=== PATIENT | male | born 1975 | race African-American/Black ===

== ENCOUNTER 2017-03-06 18:00 | Emergency (ER) | payer MEDICARE ==
[2016-03-02 12:26] VITALS: BMI 24.7
[~2017-03-06 18:00] MED LIST: CARAFATE1 G PO; CATAPRES0.1 MG PO; CATAPRES0.2 MG PO; CATAPRES0.3 MG PO; COREG 3.1253.125 MG PO; FLORAJEN3 CAPS460 MG PO; HYDRALAZINE HCL25 MG PO; HYDROCODONE-APA1 TAB PO; LISINOPRIL5 MG PO; NITRO-DUR0.3 MG TRANSDERM; NORMODYNE / TR200 MG PO; NORVASC10 MG PO; NORVASC5 MG PO; PHOSLO667 MG PO; PLAVIX75 MG PO; PRILOSEC20 MG PO; PROTONIX40 MG PO; REGLAN10 MG PO; SALINE NASAL SP45 ML NASAL; TRANDATE200 MG PO; ZOFRAN4 MG PO
== END 2017-03-06 20:18 | disposition home or self-care (01) ==
LOC: D.ER 18:00
DX: J01.90 Acute sinusitis, unspecified (principal); R50.9 Fever, unspecified; I12.9 Hypertensive chronic kidney disease with stage 1 through stage 4 chronic kidney disease, or unspecified chronic kidney disease; N18.9 Chronic kidney disease, unspecified

== ENCOUNTER → 2017-07-04 10:04 | Outpatient (CLI) | payer MEDICARE ==
[2016-03-02 12:26] VITALS: BMI 24.7
== END | disposition home or self-care (01) ==
LOC: D.MRI 10:00
DX: N28.89 Other specified disorders of kidney and ureter (principal)

== ENCOUNTER 2017-10-15 07:32 | Outpatient (CLI) | payer MEDICARE ==
[~2017-10-15] VITALS: Ht 170.2 cm; Wt 82.7 kg
--- NOTE | ~2017-10-15 | OP ---
PATIENT NAME: JAYY ALBRECHT MEDICAL RECORD: [id number] :73 LOCATION:D.CAT ADMISSION DATE: SURGEON: BARBER AGUIRRE MD DATE OF OPERATION: 10/15/2017 PROCEDURES: 1. PTCA and stent of RCA. 2. Left heart catheterization. 3. Selective coronary angiography. 4. Left ventriculogram. INDICATION: Chest pain compatible with angina, preoperative evaluation, kidney transplant, abnormal nuclear stress test. DESCRIPTION OF PROCEDURE: After informed consent was obtained and after a detailed explanation of risks, benefits as well as alternative therapies, the patient elected to proceed with angiogram and angioplasty. The right femoral area was prepped and draped in normal sterile fashion. Right femoral artery was cannulated via modified Seldinger technique with placement of 7-Upper Sorbian sheath. All catheters exchanged through this sheath. FINDINGS: The left ventriculogram was performed in a standard 30-degree MOORE view reveals preserved ejection fraction at 50% to 55%. SELECTIVE CORONARY ANGIOGRAPHY: 1. Left main is with no significant angiographic disease. 2. Left anterior descending has 70+ percent stenosis proximally. 3. Left circumflex has 90% stenosis in the mid vessel. 4. The right coronary has 70+ percent stenosis in the mid vessel. PTCA AND STENT OF THE RCA: The stent used was a 2.75 x 8-mm Integrity. Result was 0% residual stenosis. OVERALL IMPRESSION: Successful PTCA and stent of the RCA going from 70+ percent initial stenosis to 0% residual stenosis. PLAN: PTCA and stent of the left circumflex and LAD in the near future. TRANSINT:[id number] Voice Confirmation ID: [id number] DOCUMENT ID: [id number] BARBER AGUIRRE MD at 1208 CC: [id number] DICTATION DATE: 10/15/17 1002 INFORMATICS NURSE SPECIALIST: 10/15/17 1306 [facility] CLI 10/16/17 [place] [id number]
--- NOTE | ~2017-10-15 | DS ---
PATIENT:JAYY ALBRECHT :[birth year] MEDICAL RECORD: [id number] DISCHARGE SUMMARY ADMISSION DATE: 10/15/17 DISCHARGE DATE: 10/16/17 DATE OF SERVICE: 10/16/2017. DIAGNOSES: 1. Unstable angina. 2. Coronary artery disease. 3. Percutaneous transluminal coronary angioplasty stent right coronary artery and left circumflex this admission. 4. End-stage renal failure, on dialysis. 5. Hypertension. HOSPITAL COURSE: Mr. Albrecht presents with anginal symptomatology, found to have 3-vessel coronary artery disease, underwent successful PTCA stent of the RCA and left circumflex. He was discharged home with the addition of aspirin and Plavix to his medical regimen. He will follow up for PTCA stent of the LAD in the near future. TRANSINT:[id number] Voice Confirmation ID: [id number] DOCUMENT ID: [id number] BARBER AGUIRRE MD at 1208 CC: [id number] DICTATION DATE: 10/16/17925 SALES RECRUITER: 10/16/17 1144 [facility]P CLI 10/16/17 [facility] [address] [place] [address]
--- NOTE | ~2017-10-15 | OP ---
PATIENT NAME: JAYY ALBRECHT MEDICAL RECORD: [id number] :73 LOCATION:D.CAT ADMISSION DATE: SURGEON: BARBER AGUIRRE MD DATE OF OPERATION: 10/16/2017 PROCEDURES: 1. PTCA stent left circumflex. 2. Selective coronary angiography. PROCEDURE IN DETAIL: After informed consent was obtained and after a detailed description of risks, benefits as well as alternative therapies, the patient elected to proceed with angiogram and angioplasty. The left femoral area was prepped and draped in normal sterile fashion. Left femoral artery was cannulated via modified Seldinger technique with placement of 6-English sheath. All catheters exchanged through this sheath. FINDINGS: The left circumflex has a heavily calcified area of 95% stenosis in the mid vessel. This was addressed with a 3.0 cutting balloon, a 3.5 balloon, and the 3.5 x 30 mm Maximino stent. Result was 0% residual stenosis. OVERALL IMPRESSION: Successful percutaneous transluminal coronary angioplasty stent of the left circumflex going from 95% initial stenosis to 0% residual. TRANSINT:[id number] Voice Confirmation ID: [id number] DOCUMENT ID: [id number] BARBER AGUIRRE MD at 1208 CC: [id number] DICTATION DATE: 10/16/17924 CORK MOLDER: 10/16/17 1142 [facility] CLI 10/16/[address] [address]
--- NOTE | ~2017-10-15 | HEMODYNAMI ---
PATIENT:JAYY ALBRECHT MEDICAL RECORD: [id number] : 73 LOCATION:D.CAT ADMISSION DATE: 10/15/17 Generatedon:10/15/201710:05 Patient name: JAYY ALBRECHT Patient #: [id number] SSN: [id number] : 1975 Date of study: 10/15/2017 Page: Of Hemodynamic Procedure Report Patient Data Patient Demographics Procedure consent was obtained First Name: JAYY Gender: Male Last Name: TRENA : 1975 Middle Initial: M Age: 42 year(s) Patient #: [id number] Race: Black SSN: [id number] Additional ID: [id number] Contact details Address: [address] [place] [address] State: [place] City: [facility] Zip code: [address] Past Medical History Allergies Allergen Reaction Date Comments Reported Other allergy 03/03/2016 phenergan, Penicillin Admission Admission Data Admission Date: 10/15/2017 Admission Time: 7:32 Lab Results Lab Result Date: 10/15/2017 Lab Result Time: 0:00 Biochemistry Name Units Result Min Max Creatinine mg/dl 15.9 --(----)-* 0.6 1.3 Procedure Procedure Types Cath Procedure Diagnostic Procedure [facility] w/Coronaries PCI Procedure Coronary Stent Coronary Stent Initial Procedure Description Procedure Date Procedure Date: 10/15/2017 Procedure Start Time: 9:44 Procedure End Time: 10:02 Procedure Staff Name Function Poli De La Cruz MD Performing Physician Helder Min RT Monitor Patricia Chowdhury RN Nurse Jus Dumont RT Scrub Procedure Data Cath Procedure Fluoroscopy Diagnostic fluoroscopy Total fluoroscopy Time: 2.4 time: 2.4 min min Diagnostic fluoroscopy Total fluoroscopy dose: dose: 223.09 mGy 223.09 mGy Contrast Material Contrast Material Type Amount (ml) Isovue 300 120 Entry Location Entry Primary Successful Side Size Upsize Upsize Entry Closure Succes sful Closure Location (Fr) 1 (Fr) 2 (Fr) Remarks Device Remarks Femoral Right 5 Fr 7 Fr Exoseal artery Short Estimated blood loss: 20 ml Diagnostic catheters Device Type Used For End Catheter Placement MULTIPACK JL 4.0 5Fr Procedure catheter MULTIPACK 3DRC 5Fr Procedure catheter MULTIPACK Pigtail 5 Fr Procedure catheter Procedure Medications Medication Administration Route Dosage Oxygen etCO2 Nasal cannula 2 l/min Lidocaine 2% added to field 20 Heparin Flush Bag added to field 2 bags (1000units/500ml NS) 0.9% NaCl I.V. 100 ml/hr Versed I.V. 1 mg Fentanyl I.V. 50 mcg Heparin Bolus I.V. 4000 units Integrilin (Bolus I.V. 7.3 ml 2mg/ml) Versed I.V. 1 mg Fentanyl I.V. 50 mcg Versed I.V. 0.5 mg Fentanyl I.V. 25 mcg Plavix P.O. 600 mg Hemodynamics Rest Heart Rate: 60 (bpm) Pressure Samples Time Site Value (mmHg) Purpose Heart Use Rate(bpm) 9:49 LV 117/15,22 Snapshot 72 9:49 LV 129/15,18 Snapshot 65 Snapshots Pre Cath Intra NCS Post Cath Vital Signs Time Heart Resp SPO2 etCO2 NIBP (mmHg) Rhythm Pain Sedation Rate (ipm) (%) (mmHg) Status Level (bpm) 9:30:47 60 13 99 36.1 165/101(116) NSR 0 (11) 10(A) , No pain 9:35:05 57 15 100 39.1 157/97(113) NSR 0 (11) 10(A) , No pain 9:39:24 57 18 100 39.8 164/94(113) NSR 0 (11) 10(A) , No pain 9:43:35 60 15 94 15.8 130/93(122) NSR 0 (11) 10(A) , No pain 9:47:43 68 13 98 17.3 132/92(116) NSR 0 (11) 9(A) , No pain 9:51:59 69 13 100 36.1 148/87(103) NSR 0 (11) 9(A) , No pain 9:56:11 77 16 99 38.3 135/99(118) NSR 0 (11) 9(A) , No pain 10:00:27 70 15 100 36.8 150/91(128) NSR 0 (11) 10(A) , No pain Medications Time Medication Route Dose Verified Delivered Reason Notes Effectiveness by by 9:39:40 Oxygen etCO2 2 Poli Lambertie used for Nasal l/min Jono Chowdhury RN procedure cannula 9:39:48 Lidocaine 2% added 20ml Polijaziel Ashton for local to vial Joon De La Cruz MD anesthetic field 9:40:46 Heparin Flush added 2 Polijaziel Ashton used for Bag to bags Jono De La Cruz MD procedure (1000units/500ml field NS) 9:40:55 0.9% NaCl I.V. 100 Poli Buffie Per physician ml/hr Jono Chowdhury RN 9:42:13 Versed I.V. 1 mg Poli Gomez for sedation Jono Chowdhury RN 9:42:19 Fentanyl I.V. 50 Poli Buffie for sedation mcg Jono Chowdhury RN 9:45:21 Versed I.V. 1 mg Poli Gomez for sedation Jono Chowdhury RN 9:45:25 Fentanyl I.V. 50 Poli Gomez for sedation mcg Jono Chowdhury RN 9:50:35 Heparin Bolus I.V. 4000 Poli Gomez for verif ied units Jono Chowdhury RN anticoagulation with dr de la cruz 9:52:51 Integrilin I.V. 7.3 Poli Gomez for Waste d (Bolus 2mg/ml) ml Jono Chowdhury RN antiplatelet 2.7 ml therapy of vial 9:54:53 Versed I.V. 0.5 Poli Lambertie for sedation mg Jono Chowdhury RN 9:54:58 Fentanyl I.V. 25 Poli Gomez for sedation mcg Jono Chowdhury RN 10:00:11 Plavix P.O. 600 Poli Gomez for mg Jono Chowdhury RN antiplatelet therapy Procedure Log Time Note 9:11:33 Diagnostic Cath Status : Elective 9:12:17 Helder BARTON(R) (CV) sent for patient. Start room use. 9:19:34 H&P Date Dictated: 09/24/2017 Within 30 days and on chart., H&P Addendum completed by physician on day of procedure. (MUST COMPLETE FOR ALL OUTPATIENTS). 9:19:43 Time tracking: Regular hours (M-F 7:00 - 5:00) 9:19:49 Plan of Care:Hemodynamics will remain stable., Cardiac rhythm will remain stable., Comfort level will be maintained., Respiratory function will remain adequate., Patient/ family verbilizes understanding of procedure., Procedure tolerated without complication., Recovers from procedure without complications.. 9:22:06 Patient received from Pre/Post Procedure Room to CCL 3 Alert and oriented. Tansferred to table in Supine position. 9:22:12 Warm blankets applied, and robin hugger turned on for patient comfort. 9:24:25 Correct patient and procedure confirmed by team. 9:24:26 Signed procedure consent form obtained from patient. 9:24:27 ECG and BP/O2 sat monitors applied to patient. 9:29:35 Vital chart was started 9:30:41 Baseline sample Acquired. 9:30:47 Rhythm: sinus rhythm 9:30:50 Full Disclosure recording started 9:30:53 Pre-procedure instructions explained to patient. 9:30:53 Pre-op teaching completed and patient verbalized understanding. 9:30:56 Family in waiting room. 9:30:58 Patient NPO since Midnight. 9:31:55 ALLERGY TO PHENORGRAN 9:32:02 Is the patient allergic to Iodine/contrast media? No. 9:32:08 Is patient on blood thinner?No 9:32:10 Patient diabetic? No. 9:32:14 ----Pre-sedation anethsthesia assessment.---- 9:32:41 Previous problem with sedation/anesthesia? No ? 9:32:45 Snore? No 9:32:46 Sleep apnea? No 9:32:48 Deviated septum? No 9:32:49 Opens mouth fully? Yes 9:32:50 Sticks out tongue? Yes 9:32:53 Airway obstruction? No ? 9:32:56 Dentures? No ? 9:33:04 Pre procedure: right posterior tibial pulse 2+ Normal; easily identifiable; not easily obliterated 9:33:12 Patient pain scale 0/10 ?. 9:33:22 IV patent on arrival in right wrist with 0.9% NaCl at KVO. 9:33:55 Lab Result : Creatinine 15.9 mg/dl 9:34:01 Lab results completed and on chart. 9:34:06 Right groin area was prepped with chlora-prep and draped in sterile fashion 9:34:09 Alarms reviewed by R. N. 9:34:10 Sharps counted by scrub and verified by R.N. 9:39:12 Physician arrived 9:39:12 --------ALL STOP TIME OUT------ 9:39:13 Final Timeout: patient, procedure, and site verified with staff and physician. All members of the team are in agreement. 9:39:18 Right groin site verified by team. 9:39:22 Physical assessment completed. ASA score P 3 - A patient with severe systemic disease as per Poli De La Cruz MD. 9:39:27 Sedation plan: IV Moderate Sedation Medication:Versed, Fentanyl 9:39:40 Oxygen 2 l/min etCO2 Nasal cannula was administered by Patricia Chowdhury RN; used for procedure; 9:39:48 Lidocaine 2% 20ml vial added to field was administered by Poli De La Cruz MD; for local anesthetic; 9:40:46 Heparin Flush Bag (1000units/500ml NS) 2 bags added to field was administered by Poli De La Cruz MD; used for procedure; 9:40:55 0.9% NaCl 100 ml/hr I.V. was administered by Patricia Chowdhury RN; Per physician; 9:42:13 Versed 1 mg I.V. was administered by Patricia Chowdhury RN; for sedation; 9:42:19 Fentanyl 50 mcg I.V. was administered by Patricia Chowdhury RN; for sedation; 9:42:48 Use device set Femoral Dx 9:43:07 ACIST Syringe (06179) opened to sterile field. 9:43:07 Bag Decanter (2001S) opened to sterile field. 9:43:08 Medline Cath Pack ([id number]) opened to sterile field. 9:43:08 DIAGNOSTIC WIRE .035 260cm J wire (897553) opened to sterile field. 9:43:09 ACIST Hand Control (02349) opened to sterile field. 9:43:10 ACIST Manifold (29775) opened to sterile field. 9:43:12 Tegaderm 4 x 4 (1626W) opened to sterile field. 9:44:06 DIAGNOSTIC Multipack 5Fr catheter set (NQ0896) opened to sterile field. 9:44:07 SHEATH Prelude 5Fr 0.035 (KIO-7I-32-035) opened to sterile field. 9:44:12 Zero performed for pressure channel P1 9:44:26 Procedure started. 9:44:29 Local anesthetic to right femoral artery with Lidocaine 2% by Poli De La Cruz MD.INITIAL ACCESS ONLY 9:44:38 A 5 Fr sheath was inserted into the Right Femoral artery 9:45:21 Versed 1 mg I.V. was administered by Patricia Chowdhury RN; for sedation; 9:45:25 Fentanyl 50 mcg I.V. was administered by Patricia Chowdhury RN; for sedation; 9:46:10 A MULTIPACK JL 4.0 5Fr catheter was advanced over the wire and used for Procedure. 9:46:13 LCA angiography performed. 9:47:21 INFLATOR Merit BasixCompak (UX7546) opened to sterile field. 9:47:34 Catheter removed. 9:47:45 A MULTIPACK 3DRC 5Fr catheter was advanced over the wire and used for Procedure. 9:47:49 RCA angiography performed. 9:48:00 Catheter removed. 9:48:13 SHEATH 7FR [place] (APU890) opened to sterile field. 9:48:59 A MULTIPACK Pigtail 5 Fr catheter was advanced over the wire and used for Procedure. 9:50:11 GUIDE 7FR AR 2.0 SH catheter ([id number]) opened to sterile field. 9:50:21 LV hemodynamics recorded. 9:50:25 LV gram done using MOORE 9:50:31 EF : 55 % 9:50:33 Catheter removed. 9:50:35 Heparin Bolus 4000 units I.V. was administered by Patricia Chowduhry RN; for anticoagulation; verified with dr de la cruz 9:50:35 Proceeding to intervention. 9:50:57 Sheath upsized to a 7 Fr Short. 9:51:28 7 Fr AR 2 SH guide catheter was inserted over the wire 9:52:51 Integrilin (Bolus 2mg/ml) 7.3 ml I.V. was administered by Patricia Chowdhury RN; for antiplatelet therapy; Wasted 2.7 ml of vial 9:52:58 CHOICE PT Extra Support J 300cm guide wire ([id number]) opened to sterile field. 9:53:39 Wire advanced across lesion. 9:54:35 Place stent Inflation Number: 1 A INTEGRITY OTW 2.75 X 8 stent ([id number]) was prepped and advanced across the Mid RCA. The stent was deployed at 17 SOURAV for 0:10 (min:sec). 9:54:53 Versed 0.5 mg I.V. was administered by Patricia Chowdhury RN; for sedation; ::58 Fentanyl 25 mcg I.V. was administered by Patricia Chowdhury RN; for sedation; 9:55:10 EXOSEAL 7Fr (EX700) opened to sterile field. 9:55:33 Stent catheter was removed intact over wire. ::57 Wire removed. 9::59 Guide catheter removed. 9:57:56 Sheath removed intact; hemostasis achieved with Exoseal to the Right Femoral artery. 9:58:45 Procedure ended.(Physican Out) 9:59:10 Fluoroscopy time 02.40 minutes. 9:59:18 Fluoroscopy dose: 223.09 mGy 9:59:18 Flurop Dose total: 223.09 9:59:25 Contrast amount:Isovue 300 120ml. 9:59:51 Procedure type changed to Cath procedure, Diagnostic procedure, LHC, LHC w/Coronaries, PCI procedure, Coronary Stent, Coronary Stent Initial 10:00:04 Insertion/operative site no bleeding no hematoma. 10:00:11 Plavix 600 mg P.O. was administered by Patricia Chowdhury RN; for antiplatelet therapy; 10:00:25 Post-op/insertion site Right Femoral artery dressed using a 4 x 4 and Tegaderm. 10:01:33 Post right femoral artery:stable 10:01:36 Post Procedure Pulses reassessed and unchanged 10:01:41 Post-procedure physical assessment completed. ASA score P 3 - A patient with severe systemic disease as per Poli De L aCruz MD. 10:02:06 Post procedure rhythm: sinus rhythm 10:02:09 Estimated blood loss: 20 ml 10:02:11 Post procedure instruction explained to patient.Patient verbalizes understanding. 10:02:12 Patient needs reinforcement of post procedure teaching. 10:02:13 Procedure and supply charges have been captured, reviewed, submitted and are correct. 10:02:41 Vital chart was stopped 10::41 See physician's report for complete and final results. 10:02:44 Report given to Pre/Post Procedure Room. 10:02:54 Patient transfered to Pre/Post Procedure Room with Stretcher. 10::57 Procedure ended. 10:02:57 Full Disclosure recording stopped 10:03:03 End room use (Document Last) Intervention Summary Intervention Notes Time ActionType Lesion and Equipment Action# Pressure Duration Attributes Used 9:54:35 Place stent Mid RCA INTEGRITY 1 17 00:10 OTW 2.75 X 8 stent ([id number]) Device Usage Item Name Manufacture Quantity Catalog Number Hospital Part Current M inimal Lot# / Charge Number Stock Stock Serial# Code ACIST Syringe Acist 1 56153 622738 579520 444254 2 0 (40472) [employer] Bag Decanter Microtek 1 2001S 541921 15357 587119 5 (2001S) Medical Inc. Medline Cath Cardinal 1 [id number] 409832 83789 047924 5 [facility] ([id number]) DIAGNOSTIC WIRE [facility] [place] 1 192390 299379 572161 554586 3 0 .035 260cm J wire (537757) ACIST Hand Acist 1 95874 879142 014760 739058 5 Control (27715) Medical [employer] Inc ACIST Manifold Acist 1 76592 118791 082772 678424 5 (67236) [employer] Systems Inc Tegaderm 4 x 4 3M 1 1626W 188664 654330 308555 5 (1626W) DIAGNOSTIC Cardinal 1 UH6271 465574 71696 565091 3 0 Multipack 5Fr Health catheter set ([id number]) SHEATH Prelude Merit 1 KWW-2J-16-035 310616 468667 193748 5 5Fr 0.035 Medical (QEX-9V-56-035) MULTIPACK JL Cardinal 1 560555 5 4.0 5Fr Health catheter INFLATOR Merit Merit 1 RO8376 958042 380110 968770 1 5 BasKogent Surgical Medical ([id number]) MULTIPACK 3DRC Cardinal 1 133354 5 5Fr catheter Health SHEATH 7FR Terumo 1 PAC442 081044 414958 481506 5 [place] ([id number]) MULTIPACK Cardinal 1 426375 5 Pigtail 5 Fr Health catheter GUIDE 7FR AR Medtronic 1 [id number] 439505 871284 646170 0 2.0 SH catheter ([id number]) CHOICE PT Extra [place] 1 [id number] 529931 5 Support J 300cm Scientific guide wire ([id number]) INTEGRITY OTW Medtronic 1 [id number] 650304 202156 8 [id number] 2.75 X 8 stent ([id number]) EXOSEAL 7Fr Cardinal 1 EX700 718749 998497 184204 5 (EX700) Health Signature Audit [place] Stage Time Signature Unsigned Intra-Procedure 10/15/2017 Helder Min 10:04:59 AM RT(R) (CV) Signatures Monitor : Helder Min RT Signature : Date : Time : [place] [address] [place] [address]
--- NOTE | ~2017-10-15 | HEMODYNAMI ---
PATIENT:JAYY ALBRECHT MEDICAL RECORD: [id number] : 73 [id number] ADMISSION DATE: 10/15/17 Generatedon:10/16/20179:30 Patient name: JAYY ALBRECHT Patient #: [id number] SSN: [id number] : 1975 Date of study: 10/16/2017 Page: Of Hemodynamic Procedure Report Patient Data Patient Demographics Procedure consent was obtained First Name: JAYY Gender: Male Last Name: TRENA : 1975 Middle Initial: M Age: 42 year(s) Patient #: [id number] Race: Black SSN: [id number] Additional ID: [id number] Contact details Address: [address] [place] [address] State: [place] City: [facility] [place] Zip code: [address] Past Medical History Allergies Allergen Reaction Date Comments Reported Other allergy 03/03/2016 phenergan, Penicillin Admission Admission Data Admission Date: 10/15/2017 Admission Time: 7:32 Admit Source: Other Room #: D.2115 Lab Results Lab Result Date: 10/15/2017 Lab Result Time: 0:00 Biochemistry Name Units Result Min Max Creatinine mg/dl 15.9 --(----)-* 0.6 1.3 Procedure Procedure Types Cath Procedure Diagnostic Procedure Sedation Charges Moderate Sedation up to 15 minutes PCI Procedure Coronary Stent Coronary Stent Initial Procedure Description Procedure Date Procedure Date: 10/16/2017 Procedure Start Time: 9:10 Procedure End Time: 9:27 Procedure Staff Name Function Poli De La Cruz MD Performing Physician Chato Braswell RT Monitor Kareem Orr RN Nurse Procedure Data Cath Procedure Fluoroscopy Diagnostic fluoroscopy Total fluoroscopy Time: 4.7 time: 4.7 min min Diagnostic fluoroscopy Total fluoroscopy dose: 342 dose: 342 mGy mGy Contrast Material Contrast Material Type Amount (ml) Isovue 300 66 Entry Location Entry Primary Successful Side Size Upsize Upsize Entry Closure Succes sful Closure Location (Fr) 1 (Fr) 2 (Fr) Remarks Device Remarks Femoral Left 6 Fr Exoseal artery Short Estimated blood loss: 10 ml Procedure Complications No complications Procedure Medications Medication Administration Route Dosage 0.9% NaCl I.V. 30 ml/hr Oxygen etCO2 Nasal cannula 2 l/min Heparin Flush Bag added to field 2 bags (1000units/500ml NS) Lidocaine 2% added to field 20 Versed I.V. 2 mg Fentanyl I.V. 100 mcg Versed I.V. 2 mg Fentanyl I.V. 50 mcg Heparin Bolus I.V. 4000 units Fentanyl I.V. 50 mcg Hemodynamics Rest Heart Rate: 70 (bpm) Snapshots Pre Cath Intra NCS Post Cath Vital Signs Time Heart Resp SPO2 etCO2 NIBP (mmHg) Rhythm Pain Sedation Rate (ipm) (%) (mmHg) Status Level (bpm) 8:54:48 66 17 99 0 176/102(142) NSR 0 (11) 10(A) , No pain 8:59:39 71 15 100 33 180/106(133) NSR 0 (11) 10(A) , No pain 9:04:26 72 18 100 34.5 170/104(143) NSR 0 (11) 10(A) , No pain 9:09:07 71 15 98 41.3 146/94(120) NSR 0 (11) 10(A) , No pain 9:13:45 77 15 89 12 130/94(121) NSR 0 (11) 10(A) , No pain 9:18:20 74 16 95 39.8 123/91(108) NSR 0 (11) 9(A) , No pain 9:22:56 77 13 100 26.2 137/91(103) NSR 0 (11) 9(A) , No pain Medications Time Medication Route Dose Verified Delivered Reason Notes Effectiveness by by 8:59:30 0.9% NaCl I.V. 30 Kareem Kareem Per physician ml/hr Kirby Orr RN RN 8:59:40 Oxygen etCO2 2 Kareem Kareem Per physician Nasal l/min Kirby Orr cannula RN RN 8:59:50 Heparin Flush added 2 Kareem Kareem used for Bag to bags Kirby Orr procedure (1000units/500ml field RN RN NS) 9:00:05 Lidocaine 2% added 20ml Kareem Kareem for local to vial Kirby Orr anesthetic field RN RN 9:05:33 Versed I.V. 2 mg Kareem Kareem for sedation Kirby Orr RN RN 9:05:41 Fentanyl I.V. 100 Kareem Kareem for sedation mcg Kirby Orr RN RN 9:10:06 Versed I.V. 2 mg Kareem Kareem for sedation Kirby Orr RN RN 9:10:15 Fentanyl I.V. 50 Kareem Kareem for sedation mcg Kirby Orr RN RN 9:12:27 Heparin Bolus I.V. 4000 Kareem Kareem for units Kirby Orr anticoagulation RN RN 9:19:27 Fentanyl I.V. 50 Kareem Kareem for sedation mcg Kirby Orr RN internal communications manager Log Time Note 8:38:25 Informed consent obtained and on chart 8:38:27 Admit Source: Other 8:40:55 MARICRUZ ONONAN RT(R) Scrub 8:40:58 Diagnostic Cath status Elective 8:41:00 Kareem Orr RN sent for patient. Start room use. 8:41:00 Time tracking: Regular hours (M-F 7:00 - 5:00) 8:42:18 Plan of Care:Hemodynamics will remain stable., Cardiac rhythm will remain stable., Comfort level will be maintained., Respiratory function will remain adequate., Patient/ family verbilizes understanding of procedure., Procedure tolerated without complication., Recovers from procedure without complications.. 8:48:26 Patient received from Med II to CCL 1 Alert and oriented. Tansferred to table in Supine position. 8:48:31 Warm blankets applied, and robin hugger turned on for patient comfort. 8:48:31 Correct patient and procedure confirmed by team. 8:48:32 ECG and BP/O2 sat monitors applied to patient. 8:48:44 H&P Date Dictated: 10/15/2017 Within 30 days and on chart.. 8:48:48 Pre-procedure instructions explained to patient. 8:48:48 Pre-op teaching completed and patient verbalized understanding. 8:48:50 Family unavailable. 8:48:51 Patient NPO since Midnight. 8:53:48 Vital chart was started 8:53:49 Baseline sample Acquired. 8:53:53 Rhythm: sinus rhythm 8:53:54 Full Disclosure recording started 8:53:57 Is the patient allergic to Iodine/contrast media? No. 8:53:59 Is patient on blood thinner?Yes 8:54:05 ACC The patient was administered the following blood thiners within the last 24 hours: ACCPlavix 8:54:24 Patient diabetic? No. 8:54:30 If diabetic: On Metformin? No 8:54:34 Previous problem with sedation/anesthesia? No ? 8:54:38 Snore? No 8:54:39 Sleep apnea? No 8:54:40 Deviated septum? No 8:54:41 Opens mouth fully? Yes 8:54:42 Sticks out tongue? Yes 8:54:44 Airway obstruction? No ? 8:54:47 Dentures? No ? 8:55:09 Pre procedure: right dorsailis pedis pulse 1+ Palpable, but thready & weak; easily obliterated 8:55:13 Patient pain scale 0/10 ?. 8:55:31 IV patent on arrival in right wrist with 0.9% NaCl at [facility]. 8:55:34 Lab results completed and on chart. 8:55:38 Right groin area was prepped with chlora-prep and draped in sterile fashion 8:55:39 Alarms reviewed by R. N. 8:55:40 Sharps counted by scrub and verified by R.N. 8:59:30 0.9% NaCl 30 ml/hr I.V. was administered by Kareem Orr RN; Per physician; 8:59:40 Oxygen 2 l/min etCO2 Nasal cannula was administered by Kareem Orr RN; Per physician; 8:59:50 Heparin Flush Bag (1000units/500ml NS) 2 bags added to field was administered by Kareem Orr RN; used for procedure; 9:00:05 Lidocaine 2% 20ml vial added to field was administered by Kareem Orr RN; for local anesthetic; 9:03:36 Physician arrived 9:03:36 --------ALL STOP TIME OUT------ 9:03:37 Final Timeout: patient, procedure, and site verified with staff and physician. All members of the team are in agreement. 9:03:39 Left groin site verified by team. 9:03:44 Physical assessment completed. ASA score P 2 - A patient with mild systemic disease as per Poli De La Cruz MD. 9:03:47 Sedation plan: IV Moderate Sedation Medication:Versed, Fentanyl 9:05:33 Versed 2 mg I.V. was administered by Kareem Orr RN; for sedation; 9:05:41 Fentanyl 100 mcg I.V. was administered by Kareem Orr RN; for sedation; 9:09:40 ACIST Syringe (58807) opened to sterile field. 9:09:41 DIAGNOSTIC WIRE .035 260cm J wire ([id number]) opened to sterile field. 9:09:42 Bag Decanter (2002S) opened to sterile field. 9:09:43 ACIST Hand Control (56105) opened to sterile field. 9:09:44 ACIST Manifold (43918) opened to sterile field. 9:09:44 Tegaderm 4 x 4 (1626W) opened to sterile field. 9:10:06 Versed 2 mg I.V. was administered by Kareem Orr RN; for sedation; 9:10:06 CHOICE PT Extra Support 182cm wire ([id number]) opened to sterile field. 9:10:06 INFLATOR Merit BasixCompak (JI2400) opened to sterile field. 9:10:07 SHEATH 6Fr Prelude ([id number]) opened to sterile field. 9:10:10 Procedure started. 9:10:15 Fentanyl 50 mcg I.V. was administered by Kareem Orr RN; for sedation; 9:10:16 Local anesthetic to left femerol artery with Lidocaine 2% by Poli De La Cruz MD.INITIAL ACCESS ONLY 9:10:23 A 6 Fr Short sheath was inserted into the Left Femoral artery 9:10:25 Zero performed for pressure channel P1 9:10:28 Zero performed for pressure channel P1 9:10:30 Zero performed for pressure channel P1 9:10:32 Zero performed for pressure channel P1 9:10:34 Zero performed for pressure channel P1 9:10:39 Zero performed for pressure channel P1 9:10:42 Zero performed for pressure channel P1 9:11:51 6 Fr xbc 4 guide catheter was inserted over the wire 9:12:22 choice pt es wire advanced. 9:12:27 Heparin Bolus 4000 units I.V. was administered by Kareem Orr RN; for anticoagulation; 9:12:44 Wire advanced across lesion. 9:13:13 Inflate balloon Inflation number: 1 A EUPHORA 3.0 x 20 Balloon ([id number]) was prepped and advanced across the 1st Ob Tammie, then inflated to 17 SOURAV for 0:10 (min:sec). 9:13:31 Inflation number: 2 The EUPHORA 3.0 x 20 Balloon ([id number]) was reinflated across the 1st Ob Tammie, to 17 SOURAV for 0:10 (min:sec). 9:13:49 Inflation number: 3 The EUPHORA 3.0 x 20 Balloon ([id number]) was reinflated across the 1st Ob Tammie, to 19 SOURAV for 0:10 (min:sec). 9:14:35 Balloon removed over the wire. 9:15:52 Inflate balloon Inflation number: 4 A WOLVERINE Rx 3.0 x 10 cutting balloon ([id number]) was prepped and advanced across the 1st Ob Tammie, then inflated to 9 SOURAV for 0:10 (min:sec). 9:16:44 Inflation number: 5 The WOLVERINE Rx 3.0 x 10 cutting balloon ([id number]) was reinflated across the 1st Ob Tammie, to 11 SOURAV for 0:10 (min:sec). 9:17:15 Balloon removed over the wire. 9:19:27 Fentanyl 50 mcg I.V. was administered by Kareem Orr RN; for sedation; 9:19:48 Place stent Inflation Number: 6 A GABRIELA RX 3.5 x 30 stent ([id number]) was prepped and advanced across the 1st Ob Tammie. The stent was deployed at 17 SOURAV for 0:10 (min:sec). 9:20:39 Inflation number: 7 The stent balloon was then re-inflated across the 1st Ob Tammie to 9 SOURAV for 0:10 (min:sec). 9:21:03 Stent catheter was removed intact over wire. 9:21:05 Wire removed. 9:21:06 Guide catheter removed. 9:21:12 EXOSEAL 6Fr (EX600) opened to sterile field. 9:21:31 Sheath removed intact; hemostasis achieved with Exoseal to the Left Femoral artery. 9:21:33 Procedure ended.(Physican Out) 9:24:59 Fluoroscopy time 04.70 minutes. 9:25:02 Flurop Dose total: 342 9:25:02 Fluoroscopy dose: 342 mGy 9:25:23 Contrast amount:Isovue 300 66ml. 9:25:25 Sharps counted by scrub and verified by R.N. 9:25:27 Insertion/operative site no bleeding no hematoma. 9:25:30 Post-op/insertion site Left Femoral artery dressed using a 4 x 4 and Tegaderm. 9:25:35 Post left femerol artery:stable, soft, clean and dry 9:25:49 Post Procedure Pulses reassessed and unchanged 9:25:52 Post-procedure physical assessment completed. ASA score P 2 - A patient with mild systemic disease as per Poli De La Cruz MD. 9:25:56 Post procedure rhythm: unchanged. 9:26:00 Estimated blood loss: 10 ml 9:26:01 Post procedure instruction explained to patient.Patient verbalizes understanding. 9:26:01 Patient needs reinforcement of post procedure teaching. 9:26:13 Procedure type changed to Cath procedure, Diagnostic procedure, Sedation Charges, Moderate Sedation up to 15 minutes, PCI procedure, Coronary Stent, Coronary Stent Initial 9:26:51 Procedure and supply charges have been captured, reviewed, submitted and are correct. 9:26:54 Procedure Complication : No complications 9:26:56 Vital chart was stopped 9:26:56 See physician's report for complete and final results. 9:26:58 Report given to PCU. 9:27:00 Patient transfered to PCU with Stretcher. 9:27:02 Procedure ended. 9:27:02 Full Disclosure recording stopped 9:28:13 End room use (Document Last) Intervention Summary Intervention Notes Time ActionType Lesion and Equipment Used Action# Pressure Duration Attributes 9:13:13 Inflate 1st Ob Tammie EUPHORA 3.0 x 1 17 00:10 balloon 20 Balloon ([id number]) 9:13:31 Reinflate 1st Ob Tammie EUPHORA 3.0 x 2 17 00:10 balloon 20 Balloon ([id number]) 9:13:49 Reinflate 1st Ob Tammie EUPHORA 3.0 x 3 19 00:10 balloon 20 Balloon ([id number]) 9:15:52 Inflate 1st Ob Tammie WOLVERINE Rx 4 9 00:10 balloon 3.0 x 10 cutting balloon ([id number]) 9:16:44 Reinflate 1st Ob Tammie WOLVERINE Rx 5 11 00:10 balloon 3.0 x 10 cutting balloon ([id number]) 9:19:48 Place stent 1st Ob Tammie GABRIELA RX 3.5 x 6 17 00:10 30 stent ([id number]) 9:20:39 Reinflate 1st Ob Tammie GABRIELA RX 3.5 x 7 9 00:10 stent 30 stent balloon ([id number]) Device Usage Item Name Manufacture Quantity Catalog Number Hospital Part Current Minimal Lot# / Charge Number Stock Stock Serial# Code ACIST Syringe Acist 1 08795 319114 921296 [id number] 20 (89445) [employer] DIAGNOSTIC [place] 1 142309 980825 431278 930328 30 WIRE .035 260cm J wire (286696) Bag Decanter Microtek 1 2001S 024982 38335 312415 5 (2001S) Medical Inc. ACIST Hand Acist 1 90482 944593 406464 313639 5 Control Medical (22099) Systems Inc ACIST Manifold Acist 1 59355 610165 953254 022486 5 (71899) Medical Systems Inc Tegaderm 4 x 4 3M 1 1626W 886263 763818 610769 5 (1626W) CHOICE PT [place] 1 [id number] 886586 346923 325741 5 Extra Support Scientific 182cm wire ([id number]) INFLATOR Merit Merit 1 YU0525 994112 919371 190562 15 [facility] (W[place]3092) SHEATH 6Fr Merit 1 [id number] 031141 327454 487382 5 Prelude Medical ([id number]) EUPHORA 3.0 x Medtronic 1 [id number] 766797 578326 143016 5 [id number] 20 Balloon ([id number]) WOLVERINE Rx [place] 1 [id number] 153183 9752128 188057 5 3.0 x 10 Scientific cutting balloon ([id number]) GABRIELA RX 3.5 x Medtronic 1 [id number] 395650 8201881 368102 5 [id number] 30 stent ([id number]) EXOSEAL 6Fr Cardinal 1 EX600 175694 650248 120669 10 (EX600) Health Signature Audit [place] Stage Time Signature Unsigned Intra-Procedure 10/16/2017 Chato Braswell 9:30:32 AM RT(R) Signatures Monitor : Chato Braswell RT Signature : Date : Time : [place] [id number] [facility] [place] [address]
[2017-10-15 08:34] VITALS: BP 124/86
[2017-10-15 08:45] LABS: BASOPHILS 0.2 % (0-2); EOSINOPHILS 3.8 % (0-7); HEMATOCRIT 32.1 % (42.0-54.0); HEMOGLOBIN 10.6 g/dL (13.5-17.5); IMMATURE GRANULOCYTES 0.2 % (0-5); LYMPHOCYTES 12.7 % (15-50); MCV 87.7 fL (80.0-100.0); MEAN PLATELET VOLUME 9.9 fL (7.4-10.4); MONOCYTES 11.6 % (2-11); NEUTROPHILS 71.5 % (40-80); RBC 3.66 10x6/uL (4.20-6.10); RDW 14.5 % (11.5-14.5); WBC 5.5 10x3/uL (4.8-10.8)
[2017-10-15 08:46] LABS: PLATELET COUNT 155 10x3/uL (130-400)
[2017-10-15 08:52] LABS: ANION GAP 18.6 mmol/L (8-16); CARBON DIOXIDE 26.4 mmol/L (21.0-32.0); CREATININE - SERUM 15.9 mg/dL (0.6-1.3)
[2017-10-15 18:04] VITALS: BP 136/88; Ht 170.2 cm; Wt 82.7 kg
[2017-10-15 18:50] VITALS: BP 129/80
[2017-10-15 20:31] VITALS: BP 113/69
[2017-10-16 01:15] VITALS: BP 123/86
[2017-10-16 05:40] VITALS: BP 133/87
[2017-10-16 08:52] VITALS: BP 141/84
[2017-10-16 11:37] VITALS: BP 161/97
[2017-10-16] MEDS ORDERED: PLAVIX75 MG PO (15:18)
[2017-10-16] MEDS ORDERED: ASPIRIN81 MG PO (15:18)
[2017-10-17 10:49] LABS: BASOPHILS 0.4 % (0-2); EOSINOPHILS 5.3 % (0-7); HEMATOCRIT 51.8 % (42.0-54.0); HEMOGLOBIN 18.1 g/dL (13.5-17.5); IMMATURE GRANULOCYTES 0.1 % (0-5); LYMPHOCYTES 29.9 % (15-50); MCH 33.9 pg (26.0-34.0); MCHC 34.9 g/dL (31.0-37.0); MEAN PLATELET VOLUME 12.9 fL (7.4-10.4); MONOCYTES 11.2 % (2-11); NEUTROPHILS 53.1 % (40-80); RBC 5.34 10x6/uL (4.20-6.10); RDW 13.4 % (11.5-14.5); WBC 7.1 10x3/uL (4.8-10.8)
[2017-10-17 10:51] LABS: PLATELET COUNT 117 10x3/uL (130-400)
[2017-10-17 11:05] LABS: ANION GAP 10.8 mmol/L (8-16); CARBON DIOXIDE 31.7 mmol/L (21.0-32.0); CREATININE - SERUM 1.5 mg/dL (0.6-1.3); PHOSPHOROUS 4.1 mg/dL (2.5-4.9); POTASSIUM - SERUM 4.5 mmol/L (3.5-5.1)
== END 2017-10-16 18:42 | disposition home or self-care (01) ==
LOC: D.CATH 07:32 → D.M2 07:32 → D.CATH 09:30 → D.M2 16:03 → D.CATH 10-16 18:42
PROVIDERS: Internal Medicine Interventional Cardiology; Internal Medicine Nephrology
DX: I25.110 Atherosclerotic heart disease of native coronary artery with unstable angina pectoris (principal); N18.6 End stage renal disease
CPT/HCPCS: 92928; 93458; C9600

== ENCOUNTER 2017-10-22 07:32 | Outpatient (CLI) | payer MEDICARE ==
[~2017-10-22] VITALS: Ht 170.2 cm; Wt 83.2 kg
--- NOTE | ~2017-10-22 | HP ---
PATIENT: JAYY ALBRECHT MEDICAL RECORD: [id number] ACCOUNT: [id number] LOCATION:[facility] : 73 ADMISSION DATE: 10/22/17 HISTORY AND PHYSICAL EXAMINATION DIAGNOSES: 1. Angina. 2. Coronary artery disease. 3. Percutaneous transluminal coronary angioplasty stent of right coronary artery and left circumflex recently with concomitant disease to left anterior descending. 4. End-stage renal failure, on dialysis. 5. Hypertension. HISTORY OF PRESENT ILLNESS: Mr. Albrecht presents with unstable anginal symptomatology, found to have 3-vessel coronary artery disease, underwent PTCA stent of the left circumflex and RCA, he is now brought back for PTCA stent of the LAD. REVIEW OF SYSTEMS: The patient reports easy bruising but reports no swollen glands. The patient reports no fever, no night sweats, no significant weight gain, no significant weight loss. No significant exercise tolerance. The patient reports no dry eyes, no irritation, no vision change. Patient reports no difficulty hearing and no ear pain. Patient reports no frequent nose bleeds or nose and sinus problems. Patient reports on arm pain on exertion. No shortness of breath while lying down. No history of heart murmur. Patient reports no cough, no wheezing or coughing up blood. Patient reports no abdominal pain, no vomiting. Normal appetite. No diarrhea and not vomiting blood. No nausea and no constipation. Patient reports no incontinence. No difficulty urinating. No hematuria. No increased frequency. Patient reports no muscle aches. No weakness, no arthralgias, no back pain. No swelling of the extremities. Patient reports no abnormal mole, no jaundice, no rashes. Reports no loss of consciousness. No weakness and no numbness. No seizures, dizziness, or headaches. The patient reports no depression, no sleep disturbance, feeling safe in a relationship and no alcohol abuse. Patient reports on fatigue. Reports no runny nose or sinus pressure. No itching, no hives, and no frequent sneezing. PHYSICAL EXAMINATION: GENERAL APPEARANCE: Well-nourished, well-developed, appears stated age. Level of distress, comfortable. PSYCHIATRIC: Mental status, alert, normal affect. Orientation, oriented to time, place and person. EYES: Lids and conjunctiva, noninjected. No discharge, no pallor. ENT: Lips, teeth, gums, normal dentition. Oropharynx, no cyanosis, no pallor. NECK: Carotid arteries, bilateral normal upstroke, no bruits, no thrills. JUGULAR VEINS: No jugular venous pressure or distention. CERVICAL LYMPH NODES: Nontender, nonenlarged. THYROID: Not enlarged. Nontender. No nodules. LUNGS: Respiratory effort, unlabored. CHEST: Normal curvature. No thoracic deformity. No chest wall tenderness. Percussion, resonant. Auscultation, clear. No wheezes, no rales, no rhonchi. CARDIOVASCULAR: Precordial exam, nondisplaced. No heaves or pericardial thrills. Rate and rhythm, regular. Heart sounds, normal S1, normal S2. No S3, no gallop, no rub. Systolic murmur, not heard. Diastolic murmur, not heard. HISTORY AND PHYSICAL [id number] JAYY ALBRECHT EXTREMITIES: No cyanosis, no edema. Peripheral pulses, full and equal in all extremities, except as noted. No bruits appreciated. ABDOMEN: Soft, nondistended. Normal aorta. No bruit. Nontender. No masses. Liver, nontender, no hepatomegaly. Spleen, nontender, no splenomegaly. MUSCULOSKELETAL: No joint tenderness. No joint swelling. No erythema. NEUROLOGICAL: Normal gait, normal strength, normal tone. SKIN: Warm and dry. OVERALL IMPRESSION: Anginal symptomatology with significant disease of the left anterior descending. We will proceed with percutaneous transluminal coronary angioplasty stent of the left anterior descending. TRANSINT:[id number] Voice Confirmation ID: [id number] DOCUMENT ID: [id number] BARBER AGUIRRE MD at 1752 CC: [id number] DICTATION DATE: 10/22/17 0947 DAIRY CATTLE FARM WORKER: 10/22/17 1015 [facility] CLI 10/22/[address] [address]
--- NOTE | ~2017-10-22 | OP ---
PATIENT NAME: JAYY ALBRECHT MEDICAL RECORD: [id number] :73 LOCATION:D.CAT ADMISSION DATE: SURGEON: BARBER AGUIRRE MD DATE OF OPERATION: 10/22/2017 PROCEDURES: 1. PTCA stent LAD. 2. Selective coronary angiography. INDICATION: Angina and coronary artery disease. PROCEDURE IN DETAIL: After informed consent was obtained and after a detailed description of risks, benefits as well as alternative therapies, the patient elected to proceed with angiogram and angioplasty. The right femoral area was prepped and draped in normal sterile fashion. The right femoral artery was cannulated via modified Seldinger technique with placement of 6-Wolof sheath. All catheters exchanged through this sheath. FINDINGS: The left anterior descending has a napkin-ring 75% stenosis proximally. This was addressed with a 4.0 x 8 mm Integrity stent taken to 23 atmospheres. Result was 0% residual stenosis. OVERALL IMPRESSION: Successful percutaneous transluminal coronary angioplasty stent of the left anterior descending going from 75% initial stenosis to 0% residual. TRANSINT:[id number] Voice Confirmation ID: [id number] DOCUMENT ID: [id number] BARBER AGUIRRE MD at 1752 CC: [id number] DICTATION DATE: 10/22/17 0946 PRODUCT STEWARD: 10/22/17 1058 [facility] CLI 10/22/[address] [address]
--- NOTE | ~2017-10-22 | HEMODYNAMI ---
PATIENT:JAYY ALBRECHT MEDICAL RECORD: [id number] : 73 LOCATION:[facility] ADMISSION DATE: 10/22/17 Generatedon:10/22/20179:51 Patient name: JAYY ALBRECHT Patient #: [id number] SSN: [id number] : 1975 Date of study: 10/22/2017 Page: Of Hemodynamic Procedure Report Patient Data Patient Demographics Procedure consent was obtained First Name: JAYY Gender: Male Last Name: TRENA : 1975 Middle Initial: M Age: 42 year(s) Patient #: [id number] Race: Black SSN: [id number] Additional ID: [id number] Contact details Address: [address] [place] [address] State: [place] City[facility] Zip code: [address] Past Medical History Allergies Allergen Reaction Date Comments Reported Other allergy 03/03/2016 phenergan, Penicillin Other allergy 10/22/2017 phenegren Admission Admission Data Admission Date: 10/22/2017 Admission Time: 7:32 Lab Results Lab Result Date: 10/22/2017 Lab Result Time: 0:00 Biochemistry Name Units Result Min Max BUN mg/dl 62 --(----)-* 7 18 Creatinine mg/dl 15.4 --(----)-* 0.6 1.3 Procedure Procedure Types Cath Procedure Diagnostic Procedure [facility] PCI Procedure Coronary Stent Coronary Stent Initial Procedure Description Procedure Date Procedure Date: 10/22/2017 Procedure Start Time: 9:39 Procedure End Time: 9:51 Procedure Staff Name Function Poli De La Cruz MD Performing Physician Rafael Novoa RT Monitor Patricia Chowdhury RN Nurse Agnieszka Chance RT Scrub Procedure Data Cath Procedure Fluoroscopy Diagnostic fluoroscopy Total fluoroscopy Time: 1 time: 1 min min Diagnostic fluoroscopy Total fluoroscopy dose: 164 dose: 164 mGy mGy Contrast Material Contrast Material Type Amount (ml) Isovue 300 35 Entry Location Entry Primary Successful Side Size Upsize Upsize Entry Closure Succes sful Closure Location (Fr) 1 (Fr) 2 (Fr) Remarks Device Remarks Femoral Right 6 Fr Exoseal artery Short Procedure Complications No complications Procedure Medications Medication Administration Route Dosage Oxygen etCO2 Nasal cannula 2 l/min Lidocaine 2% added to field 20 Heparin Flush Bag added to field 2 bags (1000units/500ml NS) 0.9% NaCl I.V. 100 ml/hr Versed I.V. 1 mg Fentanyl I.V. 50 mcg Versed I.V. 1 mg Fentanyl I.V. 50 mcg Heparin Bolus I.V. 4000 units Versed I.V. 1 mg Fentanyl I.V. 50 mcg Hemodynamics Rest Heart Rate: 68 (bpm) Snapshots Pre Cath Intra NCS Post Cath Vital Signs Time Heart Resp SPO2 etCO2 NIBP (mmHg) Rhythm Pain Sedation Rate (ipm) (%) (mmHg) Status Level (bpm) 9:19:56 71 15 100 37.4 144/95(113) NSR 0 (11) 10(A) , No pain 9:24:08 73 15 100 35.2 137/95(111) NSR 0 (11) 10(A) , No pain 9:28:20 74 15 100 38.2 138/85(107) NSR 0 (11) 10(A) , No pain 9:32:34 73 14 100 42 133/85(102) NSR 0 (11) 10(A) , No pain 9:36:44 68 17 93 34.4 124/91(104) NSR 0 (11) 10(A) , No pain 9:40:54 84 22 95 35.9 124/83(112) NSR 0 (11) 9(A) , No pain 9:45:04 83 18 94 30 126/83(99) NSR 0 (11) 9(A) , No pain 9:48:18 73 17 100 44.2 141/91(123) NSR 0 (11) 10(A) , No pain Medications Time Medication Route Dose Verified Delivered Reason Notes Effectiveness by by 9:18:22 Oxygen etCO2 2 Poli Gomez used for Nasal l/min Jono Chowdhury hydroelectric plant electrician cannula 9:18:28 Lidocaine 2% added 20ml Poli Ashton for local to vial Jono De La Cruz MD anesthetic field 9:18:34 Heparin Flush added 2 Poli Ashton used for Bag to bags Jono De La Cruz MD procedure (1000units/500ml field NS) 9:18:41 0.9% NaCl I.V. 100 Poli Gomez Per physician ml/hr Jono Chowdhury RN 9:36:21 Versed I.V. 1 mg Poli Lambertie for sedation Jono Chowdhury RN 9:36:27 Fentanyl I.V. 50 Poli Lambertie for sedation mcg Jono Chowdhury RN 9:39:27 Versed I.V. 1 mg Poli Lambertie for sedation Jono Chowdhury RN 9:39:31 Fentanyl I.V. 50 Poli Lambertie for sedation mcg Jono Chowdhury RN 9:39:56 Heparin Bolus I.V. 4000 Poli Lambertie for verifi ed units Jono Chowdhury RN anticoagulation with dr de la cruz 9:42:16 Versed I.V. 1 mg Poli Lambertie for sedation Jono Chowdhury RN 9:42:20 Fentanyl I.V. 50 Poli Lambertie for sedation mcg Jono Chowdhury RN Procedure Log Time Note 9:09:39 ACC Patient presents with Stable Angina CCS Anginal Class 2--Slight limitation of ordinary activity. 9:09:44 Diagnostic Cath status Elective 9:09:46 Patricia Chowdhury RN sent for patient. Start room use. 9:09:48 Time tracking: Regular hours (M-F 7:00 - 5:00) 9:09:53 Plan of Care:Hemodynamics will remain stable., Cardiac rhythm will remain stable., Comfort level will be maintained., Respiratory function will remain adequate., Patient/ family verbilizes understanding of procedure., Procedure tolerated without complication., Recovers from procedure without complications.. 9:11:37 Patient received from Pre/Post Procedure Room to CCL 2 Alert and oriented. Tansferred to table in Supine position. 9:11:38 Warm blankets applied, and robin hugger turned on for patient comfort. 9:11:38 Correct patient and procedure confirmed by team. 9:11:40 Signed procedure consent form obtained from patient. 9:11:41 ECG and BP/O2 sat monitors applied to patient. 9:18:22 Oxygen 2 l/min etCO2 Nasal cannula was administered by Patricia Chowdhury RN; used for procedure; 9:18:28 Lidocaine 2% 20ml vial added to field was administered by Poli De La Cruz MD; for local anesthetic; 9:18:34 Heparin Flush Bag (1000units/500ml NS) 2 bags added to field was administered by Poli De La Cruz MD; used for procedure; 9:18:41 0.9% NaCl 100 ml/hr I.V. was administered by Patricia Chowdhury RN; Per physician; 9:18:45 Vital chart was started 9:18:52 Baseline sample Acquired. 9:18:54 Rhythm: sinus rhythm 9:20:00 Full Disclosure recording started 9:31:29 H&P Date Dictated: 10/22/2017 Within 30 days and on chart.. 9:31:30 Pre-procedure instructions explained to patient. 9:31:31 Pre-op teaching completed and patient verbalized understanding. 9:31:32 Family in waiting room. 9:31:34 Patient NPO since Midnight. 9:31:53 Patient allergic to Other allergyphenegren 9:31:56 Is the patient allergic to Iodine/contrast media? No. 9:32:00 Is patient on blood thinner?Yes 9:32:02 Patient diabetic? No. 9:32:04 If diabetic: On Metformin? No 9:32:05 ----Pre-sedation anethsthesia assessment.---- 9:32:08 Previous problem with sedation/anesthesia? No ? 9:32:19 Snore? No 9:32:20 Sleep apnea? No 9:32:22 Deviated septum? No 9:32:24 Opens mouth fully? Yes 9:32:25 Sticks out tongue? Yes 9:32:28 Airway obstruction? No ? 9:32:30 Dentures? No ? 9:32:32 Pre procedure: right dorsailis pedis pulse 1+ Palpable, but thready & weak; easily obliterated 9:32:35 Patient pain scale 0/10 ?. 9:32:46 IV patent on arrival in right antecubital with 0.9% NaCl at 10ml/hr. 9:35:18 Lab Result : BUN 62 mg/dl 9:35:18 Lab Result : Creatinine 15.4 mg/dl 9:35:22 Lab results completed and on chart. 9:35:24 Right groin area was prepped with chlora-prep and draped in sterile fashion 9:35:25 Alarms reviewed by Vasu Camacho 9:35: Sharps counted by scrub and verified by R.N. 9:35: Physician arrived 9:35: --------ALL STOP TIME OUT------ 9:35:28 Final Timeout: patient, procedure, and site verified with staff and physician. All members of the team are in agreement. 9:35:30 Right groin site verified by team. 9:35:33 Physical assessment completed. ASA score P 2 - A patient with mild systemic disease as per Poli De La Cruz MD. 9:35:37 Sedation plan: IV Moderate Sedation Medication:Versed, Fentanyl 9:36:21 Versed 1 mg I.V. was administered by Patricia Chowdhury RN; for sedation; 9:36:27 Fentanyl 50 mcg I.V. was administered by Patricia Chowdhury RN; for sedation; 9:38:59 INFLATOR Merit BasixCompak (EC8102) opened to sterile field. 9:39:09 GUIDE 6FR XBLAD 3.5 catheter ([id number]) opened to sterile field. 9:39:13 EXOSEAL 6Fr (EX600) opened to sterile field. 9:39:16 SHEATH Prelude 6Fr 0.035 (QTC-8T-72-035) opened to sterile field. 9:39:20 Procedure started. 9:39:27 Versed 1 mg I.V. was administered by Patricia Chowdhury RN; for sedation; 9:39:31 Fentanyl 50 mcg I.V. was administered by Patricia Chowdhury RN; for sedation; 9:39:37 Local anesthetic to right femoral artery with Lidocaine 2% by Poli De La Cruz MD.INITIAL ACCESS ONLY 9:39:46 A 6 Fr Short sheath was inserted into the Right Femoral artery 9:39:52 ACC Pre-intervention PIA Flow is 3. 9:39:56 Heparin Bolus 4000 units I.V. was administered by Patricia Chowdhury RN; for anticoagulation; verified with dr de la cruz 9:40:02 6 Fr XBLAD 3.5 guide catheter was inserted over the wire 9:40:07 CPTES wire advanced. 9:41:34 BMW 190cm Verbena 2 J wire ([id number]) opened to sterile field. 9:42:16 Versed 1 mg I.V. was administered by Patricia Chowdhury RN; for sedation; 9:42:20 Fentanyl 50 mcg I.V. was administered by Patricia Chowdhury RN; for sedation; 9:42:28 Inflate balloon Inflation number: 1 A INTEGRITY RX 4.0 x 09 stent ([id number]) was prepped and advanced across the Prox LAD, then inflated to 23 SOURAV for 0:15 (min:sec). 9:42:35 Stent catheter was removed intact over wire. 9:42:36 Wire removed. 9:42:39 Guide catheter removed. 9:42:46 Contrast amount:Isovue 300 35ml. 9:42:53 Flurop Dose total: 164 9:42:53 Fluoroscopy dose: 164 mGy 9:43:05 Fluoroscopy time 01.00 minutes. 9:43:13 Sheath removed intact; hemostasis achieved with Exoseal to the Right Femoral artery. 9:43:15 Procedure ended.(Physican Out) 9:43:34 Insertion/operative site no bleeding no hematoma. 9:43:37 Post-op/insertion site Right Femoral artery dressed using a 4 x 4 and Tegaderm. 9:43:40 Post right femoral artery:stable 9:45:00 Post Procedure Pulses reassessed and unchanged 9:45:02 Post procedure: right dorsailis pedis pulse 1+ Palpable, but thready & weak; easily obliterated. 9:45:05 Post procedure rhythm: sinus rhythm 9:45:07 Post procedure instruction explained to patient.Patient verbalizes understanding. 9:45:08 Procedure and supply charges have been captured, reviewed, submitted and are correct. 9:45:29 ACIST Syringe (47834) opened to sterile field. 9:45:30 Bag Decanter () opened to sterile field. 9:45:31 Medline Cath Pack ([id number]) opened to sterile field. 9:45:31 DIAGNOSTIC WIRE .035 260cm J wire (275216) opened to sterile field. 9:45:34 ACIST Hand Control (50009) opened to sterile field. 9:45:34 ACIST Manifold (00695) opened to sterile field. 9:45:36 Tegaderm 4 x 4 (1626W) opened to sterile field. 9:46:13 Procedure Complication : No complications 9:46:15 Vital chart was stopped 9:46:16 See physician's report for complete and final results. 9:46:20 Report given to Pre/Post Procedure Room. 9:46:23 Patient transfered to Pre/Post Procedure Room with Stretcher. 9:51:02 Procedure ended. 9:51:02 Full Disclosure recording stopped 9:51:05 End room use (Document Last) Intervention Summary Intervention Notes Time ActionType Lesion and Equipment Action# Pressure Duration Attributes Used 9:42:28 Inflate Prox LAD INTEGRITY RX 1 23 00:15 balloon 4.0 x 09 stent ([id number]) Device Usage Item Name Manufacture Quantity Catalog Hospital Part Current M inimal Lot# / Number Charge Number Stock Stock Serial# Code INFLATOR Merit Merit 1 [id number] 946916 394442 1 5 Duo Security ([id number]) GUIDE 6FR XBLAD Cardinal 1 [id number] 000687 021133 681828 1 0 3.5 catheter Health ([id number]) EXOSEAL 6Fr Cardinal 1 EX600 488758 229071 156659 1 0 (EX600) Health SHEATH Prelude Merit 1 OUS-6B-28-35 799814 5112131 765569 5 6Fr 0.035 Medical (HNA-9P-14-035) BMW 190cm Perason 1 [id number] 542583 36678 290737 5 Verbena 2 J Vascular wire (5660472I) INTEGRITY RX Medtronic 1 [id number] 529761 638320 956751 5 [id number] 4.0 x 09 stent ([id number]) ACIST Syringe Acist 1 91839 850638 111611 780515 2 0 (14653) Medical Systems Inc Bag Decanter Microtek 1 2001S 625222 16467 444379 5 (2001S) Medical Inc. Medline Cath Cardinal 1 [id number] 722454 15352 574292 5 Pack Health ([id number]) DIAGNOSTIC WIRE [facility] [place] 1 614305 462151 998896 930156 3 0 .035 260cm J wire (399206) ACIST Hand Acist 1 18115 264343 004687 589982 5 Control (03439) Medical Systems Inc ACIST Manifold Acist 1 34729 466474 233288 168613 5 (56388) Medical Systems Inc Tegaderm 4 x 4 3M 1 1626W 898769 827869 171427 5 (1626W) Signature Audit [place] Time Signature Unsigned Intra-Procedure 10/22/2017 Rafael BARTON(Sarah) 9:51:21 AM Signatures Monitor : Rafael Novoa RT Signature : Date : Time : [place] [id number] [facility] [place] [address]
[~2017-10-22 07:32] MED LIST changes: +ASPIRIN81 MG PO
[2017-10-22] MEDS ORDERED: PEPCID20 MG PO (07:44)
[2017-10-22 07:52] VITALS: BP 142/91; Ht 170.2 cm; Wt 83.2 kg
[2017-10-22 08:17] LABS: ANION GAP 16.8 mmol/L (8-16); CALCIUM 7.5 mg/dL (8.5-10.1); CARBON DIOXIDE 28.3 mmol/L (21.0-32.0); CREATININE - SERUM 15.4 mg/dL (0.6-1.3); POTASSIUM - SERUM 4.1 mmol/L (3.5-5.1)
[2017-10-22 08:22] LABS: BASOPHILS 0.5 % (0-2); EOSINOPHILS 4.8 % (0-7); HEMATOCRIT 28.5 % (42.0-54.0); HEMOGLOBIN 9.3 g/dL (13.5-17.5); IMMATURE GRANULOCYTES 0.2 % (0-5); LYMPHOCYTES 16.3 % (15-50); MCH 28.5 pg (26.0-34.0); MCHC 32.6 g/dL (31.0-37.0); MCV 87.4 fL (80.0-100.0); MEAN PLATELET VOLUME 9.7 fL (7.4-10.4); MONOCYTES 9.5 % (2-11); NEUTROPHILS 68.7 % (40-80); RBC 3.26 10x6/uL (4.20-6.10); RDW 14.4 % (11.5-14.5); WBC 6.6 10x3/uL (4.8-10.8)
[2017-10-22 08:24] LABS: PLATELET COUNT 143 10x3/uL (130-400)
== END 2017-10-22 14:00 ==
LOC: D.CATH 07:32
PROVIDERS: Internal Medicine Interventional Cardiology
DX: I25.110 Atherosclerotic heart disease of native coronary artery with unstable angina pectoris (principal); Z95.5 Presence of coronary angioplasty implant and graft; I12.0 Hypertensive chronic kidney disease with stage 5 chronic kidney disease or end stage renal disease; N18.6 End stage renal disease; Z01.812 Encounter for preprocedural laboratory examination

== ENCOUNTER 2017-12-02 11:04 | Emergency (ER) | payer MEDICARE ==
[~2017-12-02] VITALS: Ht 170.2 cm; Wt 72.5 kg
[~2017-12-02 11:04] MED LIST changes: +PEPCID20 MG PO
[2017-12-02 11:10] VITALS: Ht 170.2 cm; Wt 72.5 kg
[2017-12-02 11:43] LABS: BASOPHILS 0.2 % (0-2); EOSINOPHILS 4.7 % (0-7); HEMATOCRIT 31.8 % (42.0-54.0); HEMOGLOBIN 10.5 g/dL (13.5-17.5); IMMATURE GRANULOCYTES 0.2 % (0-5); LYMPHOCYTES 9.5 % (15-50); MCH 28.6 pg (26.0-34.0); MCV 86.6 fL (80.0-100.0); MEAN PLATELET VOLUME 9.4 fL (7.4-10.4); MONOCYTES 11.4 % (2-11); PLATELET COUNT 135 10x3/uL (130-400); RBC 3.67 10x6/uL (4.20-6.10); RDW 14.7 % (11.5-14.5); WBC 8.7 10x3/uL (4.8-10.8)
[2017-12-02 12:00] LABS: ALBUMIN 3.9 g/dL (3.4-5.0); ANION GAP 13.7 mmol/L (8-16); BILIRUBIN - TOTAL 0.7 mg/dL (0.2-1.3); CALCIUM 7.9 mg/dL (8.5-10.1); CARBON DIOXIDE 30.5 mmol/L (21.0-32.0); CREATININE - SERUM 9.8 mg/dL (0.6-1.3); POTASSIUM - SERUM 3.2 mmol/L (3.5-5.1); PROTEIN - SERUM 8.8 g/dL (6.4-8.2)
[2017-12-02 12:03] LABS: TROPONIN-I 0.043 ng/mL (0.000-0.060)
[2017-12-02 13:20] VITALS: BP 164/96
== END 2017-12-02 13:36 | disposition home or self-care (01) ==
LOC: D.ER 11:04
PROVIDERS: Emergency Medicine
DX: R07.9 Chest pain, unspecified (principal); I12.0 Hypertensive chronic kidney disease with stage 5 chronic kidney disease or end stage renal disease; N18.6 End stage renal disease; Z99.2 Dependence on renal dialysis; Z86.79 Personal history of other diseases of the circulatory system; E87.6 Hypokalemia; G40.909 Epilepsy, unspecified, not intractable, without status epilepticus; K21.9 Gastro-esophageal reflux disease without esophagitis

== ENCOUNTER 2018-08-31 18:11 | Inpatient (IN) | payer MEDICARE ==
--- NOTE | 2018-08-31 18:28 | NUR ---
PT TRANSPORTED TO CT VIA STRETCHER AT THIS TIME.
--- NOTE | 2018-08-31 18:29 | NUR ---
FSBS 94
--- NOTE | 2018-08-31 18:35 | NUR ---
PT RETURNED FROM CT. EDP AT BEDSIDE
--- NOTE | 2018-08-31 18:50 | NUR ---
EXAM PERFORMED WITH CAROLINE. DR. HENNING IS NEUROLOGIST
[2018-08-31 18:53] LABS: BASOPHILS 0.3 % (0-2); EOSINOPHILS 6.4 % (0-7); HEMATOCRIT 32.6 % (42.0-54.0); HEMOGLOBIN 10.8 g/dL (13.5-17.5); IMMATURE GRANULOCYTES 0.3 % (0-5); LYMPHOCYTES 20.6 % (15-50); MCH 28.5 pg (26.0-34.0); MCHC 33.1 g/dL (31.0-37.0); MEAN PLATELET VOLUME 9.1 fL (7.4-10.4); MONOCYTES 7.8 % (2-11); NEUTROPHILS 64.6 % (40-80); PLATELET COUNT 134 10x3/uL (130-400); RBC 3.79 10x6/uL (4.20-6.10); RDW 15.2 % (11.5-14.5)
[2018-08-31 19:00] LABS: APTT 31.6 SECONDS (22.8-39.4); INR 1.08 (0.85-1.17); PROTIME 13.5 SECONDS (11.6-15.0)
--- NOTE | 2018-08-31 19:05 | NUR ---
PER DR. HENNING TPA NOT TO BE ADMINISTERED.
[2018-08-31 19:18] VITALS: BP 140/81
[2018-08-31 19:30] LABS: ALBUMIN 3.7 g/dL (3.4-5.0); ALKALINE PHOSPHATASE 78 U/L (46-116); ALT (SGPT) 28 U/L (10-68); BILIRUBIN - TOTAL 0.38 mg/dL (0.2-1.3); CALC OSMOLALITY 301 mosm/kg (275-300); CARBON DIOXIDE 27.1 mmol/L (21.0-32.0); CHLORIDE - SERUM 101 mmol/L (98-107); CKMB 0.4 U/L (0.0-3.6); CREATINE KINASE 255 UL (21-232); CREATININE - SERUM 17.6 mg/dL (0.6-1.3); GLUCOSE 97 mg/dL (74-106); MAGNESIUM - SERUM 1.8 mg/dL (1.8-2.4); PROTEIN - SERUM 8.2 g/dL (6.4-8.2); SODIUM 140 mmol/L (136-145); THYROID STIMULATING HORMONE 3.17 uIU/mL (0.36-3.74); UREA NITROGEN 78 mg/dL (7-18); eGFR NON AFRICAN AMERICAN 3 mL/min (90-120)
[2018-08-31 19:31] LABS: TROPONIN-I < 0.017 ng/mL (0.000-0.060)
[2018-08-31 19:34] LABS: CALCIUM 6.5 mg/dL (8.5-10.1); POTASSIUM - SERUM 7.1 mmol/L (3.5-5.1)
[2018-08-31 20:00] VITALS: BP 125/83
[2018-08-31 20:29] VITALS: BP 150/87
[2018-08-31 21:00] VITALS: BP 128/73
--- NOTE | 2018-08-31 21:45 | NUR ---
PT HAS ARRIVED TO FLOOR BY WHEELCHAIR. TELEMETRY PLACED. AT BEDSIDE. PT IS AAO AND ANSWERS QUESTIONS APPROPRIATELY. INTRODUCED SELF TO PT. PT DENIES FURTHER NEEDS AT THIS TIME. CALL LIGHT IN REACH.
[2018-08-31] MEDS ORDERED: NEPHRO-VITE RX1 TAB PO (21:52)
[2018-08-31] MEDS ORDERED: HYDRALAZINE HCL25 MG PO (21:53)
[2018-09-01 00:11] VITALS: BP 135/75
[2018-09-01 02:59] VITALS: BP 135/75; BMI 28.1
[2018-09-01 04:00] VITALS: BP 104/64
--- NOTE | 2018-09-01 06:25 | NUR ---
PT SITTING UP IN BED WITH EYES OPEN, RR EVEN AND UNLABORED. BED IN LOW POSITION. NO S/S OF DISTRESS NOTED. PT DENIES FURTHER NEEDS AT THIS TIME. CALL LIGHT IN REACH. WILL CTM.
[2018-09-01 06:38] VITALS: BMI 28.1
[2018-09-01 06:44] LABS: BILIRUBIN - TOTAL 0.31 mg/dL (0.2-1.3); CREATININE - SERUM 18.5 mg/dL (0.6-1.3); PROTEIN - SERUM 6.8 g/dL (6.4-8.2)
[2018-09-01 06:49] LABS: ANION GAP 21.8 mmol/L (8-16); POTASSIUM - SERUM 5.8 mmol/L (3.5-5.1)
[2018-09-01 06:50] LABS: CALCIUM 6.8 mg/dL (8.5-10.1)
--- NOTE | 2018-09-01 07:22 | NUR ---
PT STATES HE'S FEELING BETTER AND WANTS TO GO HOME TO HIS REGULAR DIALYSIS SCHEDULE. DR. CHEATHAM WILL DISCHARGE. CL IN REACH, SRX2.
--- NOTE | 2018-09-01 08:19 | NUR ---
PT WALKED OUT WITH . AMBULATED WITHOUT ASSISTENCE, DENIED OFFER OF A WHEELCHAIR. PT ON THE WAY TO DIALYSIS.
--- NOTE | 2018-09-01 10:32 | MORECARE ---
CASE MANAGEMENT DISCHARGE SUMMARY PATIENT: JAYY ALBRECHT UNIT: [id number] ADM DATE: 08/31/18 AGE: 42 : [birth year] SEX: M ROOM/BED: D.2136 AUTHOR: ARMIDA FRENCH PHYSICIAN: REFERRING PHYSICIAN: EVERARDO GARNER MD DATE OF SERVICE: 09/01/18 Discharge Plan Patient Name: [facility] ALBRECHT [facility] [facility] 1975 Planned Disposition: Home Anticipated Discharge Date: 09/01/18 Discharge Date: 09/01/2018 Expected LOS: 1 Initial Reviewer: [email or web address] Initial Review Date: 08/31/2018 Generated: 09/01/18 11:32 am Patient Name: JAYY ALBRECHT Page [id number] at 1032 All edits/amendments must be made on the electronic document DICTATION DATE: 09/01/18 1032 MINE SURVEYOR: JAMAR 09/01/18 1032 RPT#: [id number] DC DATE:09/01/18 STATUS: DIS IN [facility] [address] [place] [address] END OF REPORT
== END 2018-09-01 08:20 | disposition home or self-care (01) | DRG 640 ==
LOC: D.ER 18:11 → OBSVTIME 19:21 → D.M2 19:21
PROVIDERS: Emergency Medicine; Family Medicine; ADMIT Internal Medicine Nephrology; ATTEND Internal Medicine Nephrology
DX: E87.5 Hyperkalemia (principal); N18.6 End stage renal disease; I12.0 Hypertensive chronic kidney disease with stage 5 chronic kidney disease or end stage renal disease; Z99.2 Dependence on renal dialysis; K21.9 Gastro-esophageal reflux disease without esophagitis; Z91.11 Patient's noncompliance with dietary regimen; R20.2 Paresthesia of skin

== ENCOUNTER → 2018-10-09 08:03 | Outpatient (CLI) | payer MEDICARE ==
[~2018-10-09 08:03] MED LIST changes: +NEPHRO-VITE RX1 TAB PO
--- NOTE | 2018-10-14 09:53 | EC ---
PATIENT:JAYY ALBRECHT DATE OF SERVICE: 10/09/18 SEX: M MEDICAL RECORD: [id number] DATE OF : 73 LOCATION:[facility] AGE OF PATIENT: 43 ADMISSION DATE: 10/09/18 REFERRING PHYSICIAN: INTERPRETING PHYSICIAN: BARBER DE LA CRUZ MD ECHOCARDIOGRAM REPORT ECHO CHARGES 4 ECHO COMPLETE Date: 10/09/18 CLINICAL DIAGNOSIS: CAD/ CLEARENCE FOR KIDNEY TRANSPLANT ECHOCARDIOGRAPHIC MEASUREMENTS (adult normal given) AC root (d.<3.7cm) 3.0 cm LV Septum d (<1.2 cm> 1.5 cm Valve Excursion 1.6 cm LV Septum (systole) 1.6 cm Left Atria (s.<4.0cm> 3.6 cm LVPW d(<1.2cm) 1.5 cm RV (d.<2.3cm) 3.7 cm LVPW (sytole) 1.6 cm LV diastole(<5.6CM) 4.4 cm MV E-F(>70mm/sec) cm LV systole 3.0 cm LVOT Diameter 2.2 cm MV exc.(>10mm) 1.7 cm Est.ejection fraction (50-75%) % DOPPLER: LVIT cm/sec A 76.0 cm/sec E 52.0 cm/sec LA cm/sec RVSP 14 mmHg LVOT 95 cm/sec AOP1/2T m/s Asc. Ao 136 cm/sec RVOT 73 cm/sec RA cm/sec PA 109 cm/sec AV Gradient Peak 7.42 mmHg AV Mean 3.82 mmHg AV Area 2.3 cm MV Gradient Peak 3.46 mmHg MV Mean 1.02 mmHg MV Area cm COMMENTS: Social Services Designee: Jagdeep TRAVIS Research Engineer: 1 Dr. De La Cruz TAPE# PACS Pericardial Effusion N DATE OF SERVICE: 10/09/2018 PROCEDURE: Echocardiogram. FINDINGS: 1. Left ventricular chamber size is within normal limits. Left ventricular systolic function is normal. Overall ejection fraction estimated at 60%. 2. Left atrium is within normal limits at 3.6 cm. Right atrium and right ventricular chamber sizes are mildly dilated. 3. Valvular structures have normal structure and motion. ECHOCARDIOGRAM REPORT [id number] JAYY ALBRECHT 4. Doppler interrogation reveals mild mitral regurgitation, no other valvular insufficiency or stenosis. Pulmonary systolic pressure is normal estimated 14 mmHg. 5. No evidence of pericardial effusion or left ventricular thrombus. TRANSINT:[id number] Voice Confirmation ID: [id number] DOCUMENT ID: [id number] BARBER DE LA CRUZ MD at 0953 CC: [id number] DICTATION DATE: 10/10/18 1217 CURRICULUM ASSISTANT: 10/10/18 1244 DEP CLI 10/09/18 [place] [id number] [place] [id number]
== END | disposition home or self-care (01) ==
LOC: D.HCCARDIO 08:03
PROVIDERS: ATTEND Internal Medicine Interventional Cardiology
DX: I25.10 Atherosclerotic heart disease of native coronary artery without angina pectoris (principal)

== ENCOUNTER → 2018-11-25 10:40 | Outpatient (CLI) | payer MEDICARE ==
--- NOTE | 2018-12-02 13:38 | ST ---
PATIENT:JAYY ALBRECHT MEDICAL RECORD: [id number] SEX: M LOCATION:[facility] ORDER #: ADMISSION DATE: 11/25/18 AGE OF PATIENT: 43 REFERRING PHYSICIAN: INTERPRETING PHYSICIAN: BARBER AGUIRRE MD DATE OF SERVICE: 11/25/2018 PROCEDURE: Nuclear stress test. INDICATION: Angina and coronary artery disease and hypertension. He was exercised on standard Iggy protocol for 8 minutes achieving greater than 85% max target heart rate response with 33 mCi of sestamibi injected at peak stress, 11 mCi used previously for rest images. FINDINGS: Gated SPECT reveals a mildly depressed, but preserved ejection fraction at 49% with decreased thickening and brightening throughout the inferior segments. SPECT imaging: Cardiolite was used as myocardial perfusion agent. There is a fixed perfusion defect inferiorly compatible with previous inferior myocardial infarction. There is no evidence of reversible ischemia. The remaining segments are with homogeneous uptake at rest and stress. OVERALL IMPRESSION: 1. This is a mildly abnormal nuclear stress test only with a fixed perfusion defect inferiorly. 2. Gated SPECT reveals preserved, mildly depressed ejection fraction at 49%. Current scan does suggest the presence of hemodynamically significant coronary artery disease, but no ongoing ischemic burden. Continue medical management of the coronary artery disease and cardiac risk factors. TRANSINT:[id number] Voice Confirmation ID: [id number] DOCUMENT ID: [id number] BARBER AGUIRRE MD at 1338 CC: EVERARDO GARNER MD [id number] DICTATION DATE: 11/25/18 1809 DIRECTOR OF PUBLIC SAFETY: 11/26/18 0119 DEP CLI 11/25/18 [place] [id number] [place] [address]
== END | disposition home or self-care (01) ==
LOC: D.HCCARDIO 10:40
PROVIDERS: ATTEND Internal Medicine Interventional Cardiology
DX: I25.10 Atherosclerotic heart disease of native coronary artery without angina pectoris (principal)

== ENCOUNTER → 2018-12-16 08:08 | Outpatient (CLI) | payer MEDICARE | END | disposition home or self-care (01) | LOC: D.CT 08:00 | PROVIDERS: ATTEND Nurse Practitioner Family | DX: R10.9 Unspecified abdominal pain (principal) ==

== ENCOUNTER 2019-02-27 05:14 | Emergency (ER) | payer MEDICARE ==
[~2019-02-27] VITALS: Ht 170.2 cm; Wt 90.9 kg
[2019-02-27 05:22] VITALS: Ht 170.2 cm; Wt 90.9 kg
[2019-02-27] MEDS ORDERED: STERAPRED 5MG 125 MG (05:26)
[2019-02-27] MEDS ORDERED: CELLCEPT250 MG PO (05:26)
[2019-02-27] MEDS ORDERED: PROGRAF5 MG PO (05:26)
[2019-02-27] MEDS ORDERED: FLOMAX0.4 MG PO (05:27)
[2019-02-27] MEDS ORDERED: PHENAZOPYRIDIN100 MG PO (05:27)
[2019-02-27] MEDS ORDERED: SMZ-TMP DS 800-1 TAB PO (05:27)
[2019-02-27] MEDS ORDERED: VALCYTE450 MG PO (05:27)
[2019-02-27] MEDS ORDERED: PEPCID AC20 MG (05:27)
[2019-02-27] MEDS ORDERED: COREG25 MG PO (05:28)
[2019-02-27] MEDS ORDERED: OXYCONTIN10 MG PO (05:32)
[2019-02-27 05:50] LABS: APPEARANCE CLOUDY (CLEAR); COLOR ORANGE (YELLOW); SPECIFIC GRAVITY 1.015 (1.005-1.020)
[2019-02-27 05:52] LABS: BACTERIA FEW /hpf (NEGATIVE); CALCIUM OXALATE CRYSTALS OCC /hpf (NONE SEEN); EPITHELIAL CELLS 0-5 /hpf (0-5); SPERMATOZOA PRESENT /hpf (NONE SEEN); WHITE CELLS - URINE 0-5 /hpf (NEGATIVE)
[2019-02-27 06:07] LABS: HEMATOCRIT 24.5 % (42.0-54.0); MCH 28.6 pg (26.0-34.0); MCHC 32.7 g/dL (31.0-37.0); MCV 87.5 fL (80.0-100.0); MEAN PLATELET VOLUME 10.4 fL (7.4-10.4); RDW 14.5 % (11.5-14.5)
[2019-02-27 06:14] LABS: ANION GAP 16.9 mmol/L (8-16); CALCIUM 7.7 mg/dL (8.5-10.1); CARBON DIOXIDE 23.3 mmol/L (21.0-32.0); CREATININE - SERUM 5.3 mg/dL (0.6-1.3); PLATELET COUNT 77 10x3/uL (130-400); POTASSIUM - SERUM 3.2 mmol/L (3.5-5.1)
[2019-02-27 06:38] LABS: ALBUMIN 2.9 g/dL (3.4-5.0); BILIRUBIN - TOTAL 0.79 mg/dL (0.2-1.3); MAGNESIUM - SERUM 1.6 mg/dL (1.8-2.4); PROTEIN - SERUM 6.1 g/dL (6.4-8.2)
[2019-02-27 07:29] VITALS: BP 111/64
[2019-02-27 09:56] LABS: LYMPHOCYTES 10 % (15-50); MONOCYTES 8 % (2-11); NEUTROPHILS 81 % (40-80); PLATELET ESTIMATE DECREASED
[2019-02-27 09:57] LABS: ROULEAUX OCC
== END 2019-02-27 07:29 | disposition home or self-care (01) ==
LOC: D.ER 05:14
PROVIDERS: Family Medicine
DX: G89.18 Other acute postprocedural pain (principal); E87.6 Hypokalemia; Z48.22 Encounter for aftercare following kidney transplant; E07.9 Disorder of thyroid, unspecified; I10 Essential (primary) hypertension

== ENCOUNTER 2019-03-02 03:21 | Emergency (ER) | payer MEDICARE ==
[~2019-03-02] VITALS: Ht 170.2 cm; Wt 88.6 kg
[~2019-03-02 03:21] MED LIST changes: +CELLCEPT250 MG PO; +COREG25 MG PO; +FLOMAX0.4 MG PO; +OXYCONTIN10 MG PO; +PEPCID AC20 MG; +PHENAZOPYRIDIN100 MG PO; +PROGRAF5 MG PO; +SMZ-TMP DS 800-1 TAB PO; +STERAPRED 5MG 125 MG; +VALCYTE450 MG PO
[2019-03-02 03:29] VITALS: Ht 170.2 cm; Wt 88.6 kg
[2019-03-02] MEDS ORDERED: BAYER CHEWABLE81 MG PO (03:31)
[2019-03-02] MEDS ORDERED: NYSTATIN ORAL SU5 ML PO (03:31)
[2019-03-02] MEDS ORDERED: PHENAZOPYRIDIN200 MG PO (03:32)
[2019-03-02 03:53] LABS: APPEARANCE CLOUDY (CLEAR); BILIRUBIN NEGATIVE (NEGATIVE); COLOR ORANGE (YELLOW); GLUCOSE NEGATIVE (NEGATIVE); KETONE NEGATIVE (NEGATIVE); NITRITE NEGATIVE (NEGATIVE); PROTEIN 3+ mg/dL (NEGATIVE); SPECIFIC GRAVITY 1.015 (1.005-1.020); UROBILINOGEN NORMAL (NORMAL)
[2019-03-02 03:56] LABS: BACTERIA FEW /hpf (NEGATIVE); EPITHELIAL CELLS 0-5 /hpf (0-5)
[2019-03-02] MEDS ORDERED: CIPRO250 MG PO (04:11)
[2019-03-02] MEDS ORDERED: HYDROCODON-ACE1 EAC2 PO (04:14)
[2019-03-02 04:36] VITALS: BP 138/79
== END 2019-03-02 04:41 | disposition home or self-care (01) ==
LOC: D.ER 03:21
PROVIDERS: Emergency Medicine
DX: N48.89 Other specified disorders of penis (principal); R82.71 Bacteriuria; R30.0 Dysuria; Z95.5 Presence of coronary angioplasty implant and graft; I12.0 Hypertensive chronic kidney disease with stage 5 chronic kidney disease or end stage renal disease; N18.6 End stage renal disease; Z94.0 Kidney transplant status

== ENCOUNTER 2019-03-24 05:29 | Emergency (ER) | payer MEDICARE ==
[~2019-03-24] VITALS: Ht 170.2 cm; Wt 79.1 kg
[~2019-03-24 05:29] MED LIST changes: +BAYER CHEWABLE81 MG PO; +CIPRO250 MG PO; +HYDROCODON-ACE1 EAC2 PO; +NYSTATIN ORAL SU5 ML PO; +PHENAZOPYRIDIN200 MG PO
[2019-03-24 05:33] VITALS: Ht 170.2 cm; Wt 79.1 kg
[2019-03-24 06:34] LABS: ANION GAP 16.2 mmol/L (8-16); CALCIUM 8.9 mg/dL (8.5-10.1); CARBON DIOXIDE 18.2 mmol/L (21.0-32.0); CREATININE - SERUM 4.6 mg/dL (0.6-1.3); POTASSIUM - SERUM 4.4 mmol/L (3.5-5.1)
[2019-03-24 06:40] LABS: ALBUMIN 3.2 g/dL (3.4-5.0); BASOPHILS 0.4 % (0-2); BILIRUBIN - TOTAL 0.34 mg/dL (0.2-1.3); HEMATOCRIT 27.5 % (42.0-54.0); HEMOGLOBIN 8.8 g/dL (13.5-17.5); IMMATURE GRANULOCYTES 0.2 % (0-5); LYMPHOCYTES 8.9 % (15-50); MCH 27.6 pg (26.0-34.0); MCV 86.2 fL (80.0-100.0); MEAN PLATELET VOLUME 8.9 fL (7.4-10.4); MONOCYTES 11.7 % (2-11); NEUTROPHILS 75.8 % (40-80); PROTEIN - SERUM 6.7 g/dL (6.4-8.2); RBC 3.19 10x6/uL (4.20-6.10); RDW 14.6 % (11.5-14.5)
[2019-03-24 06:47] LABS: PLATELET COUNT 248 10x3/uL (130-400)
[2019-03-24 07:20] VITALS: BP 152/93
== END 2019-03-24 08:41 | disposition other institution (70) ==
LOC: D.ER 05:29
PROVIDERS: Family Medicine
DX: N13.5 Crossing vessel and stricture of ureter without hydronephrosis (principal); Z94.0 Kidney transplant status; I10 Essential (primary) hypertension